=== PATIENT | female | born 1970 | race Caucasian/White ===

== ENCOUNTER → 2023-06-05 17:22 | Outpatient (REF) | payer BC, SELFPAY | LOC: HWWDC 17:22 | PROVIDERS: ATTENDING PHYSICIAN Emergency Medicine | DX: Z12.31 Encounter for screening mammogram for malignant neoplasm of breast (principal) | CPT/HCPCS: 77063; 77067 ==

== ENCOUNTER → 2023-06-27 18:40 | Outpatient (REF) | payer BC, SELFPAY | LOC: MRI 18:40 | PROVIDERS: ATTENDING PHYSICIAN Emergency Medicine | DX: M54.12 Radiculopathy, cervical region (principal); M54.2 Cervicalgia; R20.2 Paresthesia of skin; R51.9 Headache, unspecified | CPT/HCPCS: 70553; 72156; A9575 ==

== ENCOUNTER → 2023-11-06 06:13 | Day surgery (SDC) | payer BC, SELFPAY | LOC: GI 06:13 | PROVIDERS: ATTENDING PHYSICIAN Surgery | DX: Z12.11 Encounter for screening for malignant neoplasm of colon (principal); K56.2 Volvulus; K62.89 Other specified diseases of anus and rectum | CPT/HCPCS: G0121 ==

== ENCOUNTER → 2023-11-29 17:24 | Outpatient (REF) | payer BC, SELFPAY | LOC: MRI 3T 17:24 | PROVIDERS: ATTENDING PHYSICIAN Psychiatry & Neurology Neurology; FAMILY PHYSICIAN Emergency Medicine | DX: G37.9 Demyelinating disease of central nervous system, unspecified (principal) | CPT/HCPCS: 72157; A9575 ==

== ENCOUNTER 2024-03-04 20:39 | Inpatient (IN) | payer BC, SELFPAY ==
[2024-03-04 14:20] VITALS: BP 134/90
[2024-03-04 14:50] LABS: Hematocrit 52.2 % (37.0-47.0); Hemoglobin 17.4 g/dL (12.0-16.0); Mean Corp Hgb Conc. 33.3 g/dL (33.0-37.0); Mean Corpuscular Hgb 31.2 pg (27.0-31.0); Mean Corpuscular Volume 93.7 fL (81.0-99.0); Mean Platelet Volume 8.9 fL (7.4-10.4); Platelet Count 330 10^3/uL (130-400); Red Blood Cell Count 5.57 10^6/uL (4.20-5.40); Red Cell Dist. Width 13.1 % (11.5-14.5); White Blood Cell Count 3.5 10^3/uL (4.8-10.8)
[2024-03-04 15:00] LABS: Absolute Neutrophils -Man Diff 2.5 10^3/uL (1.4-6.5); Band Neutrophils 23 % (0-3); Lymphocytes 6 % (20-51); Monocytes 18 % (2-9); Segmented Neutrophils 50 % (42-75)
[2024-03-04 15:01] LABS: Atypical Lymphocytes 2 %; Eosinophils 1 % (0-6); Normal RBC Morphology Yes; Platelets Checked Yes; Total Cells Counted 100
[2024-03-04 15:07] LABS: ALT (SGPT) 22 U/L (0-35); AST (SGOT) 19 U/L (14-36); Albumin 4.3 g/dl (3.5-5.0); Alkaline Phosphatase 98 U/L (38-126); Blood Urea Nitrogen 17 mg/dl (7-17); Calcium 9.6 mg/dl (8.4-10.2); Carbon Dioxide 15 mmol/L (22-30); Chloride 107 mmol/L (98-107); Glucose 121 mg/dl (70-99); Lipase 54 U/L (23-300); Potassium 4.2 mmol/L (3.5-5.1); Sodium 140 mmol/L (135-145); Total Bilirubin 0.6 mg/dl (0.2-1.3); Total Protein 7.4 g/dl (6.3-8.2); eGFR 38.33
[2024-03-04 16:48] VITALS: BP 145/82
[2024-03-04 17:00] VITALS: BP 139/90
[2024-03-04 17:01] VITALS: BP 139/90
[2024-03-04 17:02] VITALS: BMI 43.1
[2024-03-04] MEDS: NSS 1000 IV ×2 (17:05→19:11)
[2024-03-04 17:32] LABS: Lactic Acid 1.3 mmol/L (0.7-2.0)
--- NOTE | 2024-03-04 18:10 | ED.GENMED ---
History of Present Illness
General
Chief Complaint: Abdominal Symptoms
Source: patient and spouse
Exam Limitations: none
Time Seen by Provider: 03/04/24 16:31
History of Present Illness
History of Present Illness:
This a 53-year-old female presents with persistent nausea, vomiting and diarrhea since Saturday. The patient states she is on Zepbound but has been on the same dose now for 2 doses and did not have any recent increase. The patient states that the
symptoms are persistent since Saturday. She states she just feels really dehydrated. And that she has been unable to eat or drink anything. Even ice chips make her want to vomit. No blood in the vomit. No blood in the stool. No abdominal pain.
No back pain. No chest pain. No fevers. No sick contacts. Denies any urinary symptoms
Past History
Past History
ED Past Medical History: Hypercholesterolemia and Other (Migraines, obesity, gastric bypass)
ED Past Surgical History: and Other (Gastric bypass)
Phy Exam
Physical Exam
Physical Exam:
CONSTITUTIONAL Patient alert and oriented to person, place and time. Well-appearing. Vital signs reviewed.
HEAD atraumatic, normocephalic.
EYES eyelids normal to inspection, Extraocular muscles intact, Conjunctiva normal, Sclera normal.
NECK normal range of motion, Trachea midline, no jugular venous distention.
RESPIRATORY CHEST No respiratory distress noted, Chest expansion equal, Bilateral breath sounds clear.
CARDIOVASCULAR regular and tachycardic
ABDOMEN abdomen nontender, Bowel sounds normal. No distention.
BACK normal inspection, no obvious deformities
UPPER EXTREMITY range of motion normal, Motor strength normal, no cyanosis, no edema.
LOWER EXTREMITY range of motion normal, Motor strength normal, no cyanosis, no edema.
NEURO Speech normal, No focal motor deficits, Jacqueline coma scale 15, Memory normal, Cranial Nerves intact to screening exam.
SKIN skin warm, dry, and normal in color.
Course
Orders/Labs/Results
Orders:
Orders
03/04/24 14:27
Electrocardiogram (*1) Urgent
Reason for Study: Tachycardia
EKG- Treatment ONCE
03/04/24 14:42
Complete Blood Count/With Diff Urgent
Comprehensive Metabolic Panel Urgent
Lipase Urgent
Manual Differential Urgent
03/04/24 16:31
Urinalysis Reflex To Culture Urgent
03/04/24 16:32
0.9% Sodium Chloride 1000 ml [Nss] 1,000 ml IV BOLUS
03/04/24 16:39
Norovirus by PCR Urgent
ESTRADA Source: Feces/Stool
Specimen Description:
Stool Culture Urgent
[facility]ADA Source: Feces/Stool
Specimen Description:
0.9% Sodium Chloride 1000 ml [Nss] 1,000 ml IV BOLUS
03/04/24 16:59
Lactic Acid Q4H
Comment: CANCEL 2nd LACTIC ACID IF 1st LACTIC ACID IS LESS THAN 2
Blood Culture Q30M
ESTRADA Source: Blood/Venous
Specimen Description:
Blood Culture Q30M
ESTRADA Source: Blood/Venous
Specimen Description:
03/04/24 17:12
Add On- LAB Urgent
Tests Added?: lipase
03/04/24 18:00
Procalcitonin Urgent
03/04/24 20:45
Lactic Acid Q4H
Comment: CANCEL 2nd LACTIC ACID IF 1st LACTIC ACID IS LESS THAN 2
Abnormal Lab Results
03/04/24
14:42
WBC 3.5 L 10^3/uL
(4.8-10.8)
RBC 5.57 H 10^6/uL
(4.20-5.40)
Hgb 17.4 H g/dL
(12.0-16.0)
Hct 52.2 H %
(37.0-47.0)
MCH 31.2 H pg
(27.0-31.0)
Band Neutrophils 23 H %
(0-3)
Lymphocytes (Manual) 6 L %
(20-51)
Monocytes (Manual) 18 H %
(2-9)
Carbon Dioxide 15 L mmol/L
(22-30)
Creatinine 1.6 H mg/dL
(0.6-1.0)
Glucose 121 H mg/dl
(70-99)
03/04/24 14:42
03/04/24 14:42
Vital Signs
Initial and Last Documented VS:
Initial Vital Signs
Temp Pulse Resp BP Pulse Ox
96.2 F L 129 18 134/90 98
03/04/24 14:20 03/04/24 14:20 03/04/24 14:20 03/04/24 14:20 03/04/24 14:20
Last Documented Vital Signs
Temp Pulse Resp BP Pulse Ox
98.3 F 119 23 139/90 98
03/04/24 18:02 03/04/24 17:01 03/04/24 17:00 03/04/24 17:01 03/04/24 16:50
MDM/Problems Addressed
Differential Diagnosis Includes:
Electrolyte disturbance, dehydration, gastroenteritis, enteritis, colitis, norovirus
MDM/Problems Addressed:
Acute kidney injury, severe dehydration, bandemia, metabolic acidosis
*Pulse Oximetry
Patient hypoxic: no
*Feather Sawyer Interpretation
Rate: tachycardiac
Interpretation: abnormal
Rhythm: sinus
*Critical Care Note
Total Time (30-74mins, 75-104mins- exclusive of procedures): Not Applicable
Data Reviewed
Source: patient and spouse
Further Testing Considered But Not Given:
Considered CT of the abdomen but abdomen soft no pain
Patient Management
Discussion with other providers: Hospitalist
Escalation/DeEscalation of care consider admission/obs:
Patient remains persistently tachycardic. Given the amount of volume contraction and findings and laboratory studies, admit for continue IV fluids and monitoring. Patient still unable to tolerate anything by mouth. Suspect norovirus
ED Attending Note
-
Portions of this chart may have been created with voice recognition software.� Occasional wrong word or��sound alike� substitutions may have occurred due to the inherent limitations of voice recognition software.
Discharge Plan
Departure
Patient Disposition: Admit
Date of Disposition: 03/04/24
Time of Disposition: :25
Admit to: Med/Surg
Presentation/result/management discussed w/ accepting MD/DO: Hospitalist
Discharge Problem:
Dehydration, severe, Acute kidney injury, suspected norovirus
Referrals:
Alea Reilly MD [Family Provider] -
Interventions
Interventions:
*Risk Screen - Suicide Last Done: 03/04/24 14:20
*General Assessment Last Done: 03/04/24 14:20
*Neglect/Abuse Screening Last Done: 03/04/24 14:20
Discharge Date and Time
Print Language: PASHTO
[2024-03-04 18:47] LABS: Procalcitonin < 0.05 ng/ml (0.0-0.25)
[2024-03-04 19:00] VITALS: BP 124/84
--- NOTE | 2024-03-04 20:11 | HPS.HSE ---
Family Physician
-
Family Physician: Alea Reilly MD
Chief Complaint
-
N/V/D
History of Present Illness
Patient is a 53y F with PMH significant for anxiety, obesity and migraines who presents to ED complaining of N/V/D x 3 days. Patient states that she took her most recent dose of Zepbound on Saturday. She has been on this medication for about 14
weeks. Saturday was her second dose of the higher, 7.5mg dosing. The following day she developed intractable vomiting and diarrhea. Emesis was bilious appearing and stool was loose, liquid and appeared very dark / black. She was unable to tolerate
significant PO intake and has only been able to take in ice chips for the past 3 days. She reports about 10 episodes of diarrhea overnight just last night.
Patient denies any abdominal pain, fevers / chills, urinary complaints, etc. There are no other sick contacts in her home.
Patient states that she has lost about 11 pounds since Saturday due to her GI losses.
Medical History
Past Medical History
Past Medical History: Reports Other
Additional Past Medical History:
Anxiety
Dyslipidemia
Migraine Headaches
Obesity
GERD
Past Surgical History: Reports Other
Additional Past Surgical History:
Gastric Bypass (2003)
Abdominoplasty
Social History
Tobacco: Non-smoker
Alcohol: Occasional (Rarely)
Drug: None
Personal:
Living: With Family
Family History
Family History: Other (Mother: JOLLEY / Cirrhosis, DM)
Allergies / Home Medications
Allergies reflects when Allergies were last updated in [facility].
Home Medications with original date entered in [facility]
Allergy/Medication List:
Allergies
Allergy/AdvReac Type Severity Reaction Status Date / Time
dextromethorphan Allergy Intermediate Unknown Verified 03/04/24 14:18
Home Medications
atorvastatin 10 mg tablet 10 mg PO HS 03/04/24
bupropion HCl 300 mg 24 hr tablet, extended release 300 mg PO HS 03/04/24
calcium 600 mg (as carbonate)-vitamin D3 5 mcg (200 unit) tablet 1 tab PO DAILY 03/04/24
cyanocobalamin (vitamin B-12) 500 mcg tablet 500 mcg PO DAILY 03/04/24
docusate sodium 100 mg capsule (Stool Softener) 100 mg PO HS 03/04/24
ferrous sulfate 134 mg (27 mg iron) tablet 134 mg PO DAILY 03/04/24
magnesium oxide 250 mg PO DAILY 03/04/24
melatonin 10 mg tablet 50 mg PO HS 03/04/24
omeprazole 40 mg capsule,delayed release 40 mg PO HS 03/04/24
potassium 99 mg tablet 99 mg PO DAILY 03/04/24
tirzepatide (weight loss) 7.5 mg/0.5 mL subcutaneous pen injector (Zepbound) 7.5 mg SC BAILEY 03/04/24
topiramate 100 mg tablet 100 mg PO HS 03/04/24
vitamin B complex 1 tab PO DAILY 03/04/24
Review of Systems
-
History Source: Patient
A 12 point ROS was completed and negative except as noted: Yes
Constitutional: Reports Weight Loss and Fatigue; Denies Fever or Chills
Respiratory: Denies Cough or Trouble Breathing
Cardiac: Denies Chest Pain or Palpitations
Abdomen/GI: Reports Nausea, Vomiting, Diarrhea and Black Stools; Denies Abdominal Pain
: Denies Dysuria, Frequency or Flank Pain
Musculoskeletal: Denies Joint Pain or Edema
Neurological: Denies Dizzy or Headache
Psych: Denies Depression or Anxiety
Physical Exam
Vital Signs
Vital Signs
Temp Pulse Resp BP Pulse Ox
98.3 F 119 23 139/90 98
03/04/24 18:02 03/04/24 17:01 03/04/24 17:00 03/04/24 17:01 03/04/24 16:50
Physical Exam
General: Other (53y F in no acite distress.)
HEENT: Moist mucous membranes and PERRLA
Respiratory: Clear; No Wheezes, Rales or Rhonchi
Cardiac: S1/S2 and Regular Rhythm; No Murmur
GI: Soft, Non Tender, Non Distended and Normal Bowel Sounds
Musculoskeletal: No Clubbing, No Cyanosis and No Edema
Neuro: AO x 3
Laboratory Results
-
03/04/24 14:42
03/04/24 14:42
Laboratory Results
Lactic Acid Cancelled 03/04/24 20:45
Total Bilirubin 0.6 mg/dl (0.2-1.3) 03/04/24 14:42
AST 19 U/L (14-36) 03/04/24 14:42
ALT 22 U/L (0-35) 03/04/24 14:42
Alkaline Phosphatase 98 U/L (38-126) 03/04/24 14:42
Lipase 54 U/L (23-300) 03/04/24 14:42
Impression/Plan
-
A/P: Patient si a 53y F with PMH significant for anxiety, migraines and obesity who presents to ED complaininig of N/v/D x 3 days.
N/V/D
Suspected AYE
Anion Gap Metabolic Acidosis
- Admit for further evaluation and treatment.
- GI symptoms likely secondary to tirzepatide - though infectious etiology / Norovirus is a possibility.
- Hold further tirzepatide.
- Follow-up stool studies.
- SCr = 1.6 without prior for comparison - but suspect prerenal AYE due to volume losses.
- IVFs support, antiemetics, supportive care.
- Follow for clinical improvement.
- Low fat diet as tolerated.
- Hold PO magnesium and PPI for now given diarrhea.
- Follow labs / lytes for improvement.
Dyslipidemia
- Stable. Continue statin.
Anxiety / Insomnia
- Stable. Continue Wellbutrin.
- Continue melatonin, but at 10mg dosing - 50mg is excessive.
Migraine Headaches
- Stable. Continue topiramate.
Obesity due to excess calories
- Affects all aspects of care.
- Encourage healthy diet and increased exercise with goal of weight loss.
- If no infectious etiology for current symptoms is discovered, would avoid tirzepatide and similar medications.
DVT Prophylaxis: SCDs
Code Status: Full
[2024-03-05 00:12] LABS: Urine Albumin Trace (Neg - Trace); Urine Bilirubin 2+ (Negative); Urine Character Clear (Clear); Urine Glucose Negative (Negative); Urine Ketone 3+ (Negative); Urine Leukocyte Negative (Negative); Urine Nitrite Negative (Negative); Urine Occult Blood Negative (Negative); Urine Urobilinogen Negative (Neg - 1+)
[2024-03-05 00:13] LABS: Urine Color Amber
[2024-03-05] MEDS: LIPITOR 10 MG PO ×2 (01:17→21:03)
[2024-03-05] MEDS: WELLBUTRIN XL (24 hour extended release) 300 MG PO ×2 (01:18→21:03)
[2024-03-05] MEDS: MELATONIN 10 MG PO ×2 (01:18→21:03)
[2024-03-05] MEDS: TOPAMAX 100 MG PO ×2 (01:18→21:03)
[2024-03-05] MEDS: IMODIUM 2 MG PO ×2 (02:17→10:33)
[2024-03-05] MEDS: LR 1000 IV ×4 (02:17→23:18)
[2024-03-05 02:30] VITALS: BP 134/73
[2024-03-05 05:38] VITALS: BP 128/55
[2024-03-05 05:51] LABS: Hematocrit 42.1 % (37.0-47.0); Mean Corp Hgb Conc. 33.3 g/dL (33.0-37.0); Mean Corpuscular Hgb 31.7 pg (27.0-31.0); Mean Corpuscular Volume 95.2 fL (81.0-99.0); Mean Platelet Volume 9.2 fL (7.4-10.4); Platelet Count 265 10^3/uL (130-400); Red Blood Cell Count 4.42 10^6/uL (4.20-5.40); Red Cell Dist. Width 13.4 % (11.5-14.5); White Blood Cell Count 4.3 10^3/uL (4.8-10.8)
[2024-03-05 06:18] LABS: ALT (SGPT) 15 U/L (0-35); AST (SGOT) 16 U/L (14-36); Albumin 2.9 g/dl (3.5-5.0); Alkaline Phosphatase 69 U/L (38-126); Blood Urea Nitrogen 15 mg/dl (7-17); Calcium 8.3 mg/dl (8.4-10.2); Carbon Dioxide 16 mmol/L (22-30); Chloride 110 mmol/L (98-107); Estimated Creatinine Clearance 69 ml/min; Glucose 86 mg/dl (70-99); Magnesium 1.5 mg/dl (1.6-2.3); Phosphorus 3.6 mg/dl (2.5-4.5); Potassium 3.2 mmol/L (3.5-5.1); Sodium 138 mmol/L (135-145); Total Bilirubin 0.4 mg/dl (0.2-1.3); Total Protein 5.5 g/dl (6.3-8.2); eGFR 54.13
[2024-03-05 06:47] LABS: TSH Reflex To Free T4 1.02 uIU/ml (0.47-4.68)
[2024-03-05 08:33] VITALS: BP 115/70
--- NOTE | 2024-03-05 09:51 | W.PN.HOSP.TC ---
Today's Communication/Plan
-
Symptomatically improved with resolved nausea and emesis.
Remains with diarrhea.
Continue IV hydration.
Replete electrolytes.
Follow-up BMP
Assessment / Plan
Assessment / Plan
A/P: Patient si a 53y F with PMH significant for anxiety, migraines and obesity who presents to ED complaininig of N/v/D x 3 days.
N/V/D
AYE
Anion Gap Metabolic Acidosis
- GI symptoms likely secondary to tirzepatide -less likely due to infection. Norovirus negative. Stool cultures pending.
- Hold further tirzepatide.
- Follow-up stool studies.
- SCr = 1.6 without prior for comparison - but suspect prerenal AYE due to volume losses.
- IVFs support, antiemetics, supportive care.
- Follow for clinical improvement.
- Low fat diet as tolerated.
- Hold PO magnesium and PPI for now given diarrhea.
- Follow labs / lytes for improvement.
Dyslipidemia
- Stable. Continue statin.
Anxiety / Insomnia
- Stable. Continue Wellbutrin.
- Continue melatonin, but at 10mg dosing - 50mg is excessive.
Migraine Headaches
- Stable. Continue topiramate.
Obesity due to excess calories
- Affects all aspects of care.
- Encourage healthy diet and increased exercise with goal of weight loss.
- If no infectious etiology for current symptoms is discovered, would avoid tirzepatide and similar medications.
DVT Prophylaxis: SCDs
Code Status: Full
Anticipated Discharge: 24 - 48 hours
Subjective/Interval History
-
Date of Service: March 05, 2024
Objective Data
-
Labs:
Laboratory Results
03/05/24
05:20
WBC 4.3 L
Hgb 14.0
Hct 42.1
Plt Count 265
Sodium 138
Potassium 3.2 L
Chloride 110 H
Carbon Dioxide 16 L
BUN 15
Creatinine 1.2 H
Glucose 86
Calcium 8.3 L
Total Bilirubin 0.4
AST 16
ALT 15
Alkaline Phosphatase 69
Vital Signs:
Vital Signs
Temp Pulse Resp BP Pulse Ox
98.2 F 105 20 115/70 99
03/05/24 08:33 03/05/24 08:33 03/05/24 08:33 03/05/24 08:33 03/05/24 08:33
Physical Exam
-
General: Well Developed and No Apparent Distress
HEENT: Normocephalic, Atraumatic and Moist Mucous Membranes
Respiratory: Clear to Auscultation
Cardiac: Regular Rhythm and S1/S2; Negative Murmur, Rub or Gallop
GI: Soft, Nontender, Nondistended and Normal Bowel Sounds; Negative Organomegaly
Rectal: Deferred by Provider
Musculoskeletal: No Clubbing, No Cyanosis and No Edema
Skin: Negative Rash
Neuro: Nonfocal/Grossly Intact
[2024-03-05] MEDS: KCL 40 MEQ PO (10:33)
[2024-03-05 13:35] VITALS: BMI 43.1
[2024-03-05 16:27] VITALS: BP 112/64; BMI 44.0
[2024-03-05 23:00] VITALS: BP 109/67; BP 110/58; BP 115/66; PULSE 105; PULSE 108; PULSE 116
[2024-03-06] MEDS: LR 1000 IV (05:56)
[2024-03-06 08:33] LABS: Hematocrit 38.4 % (37.0-47.0); Hemoglobin 13.2 g/dL (12.0-16.0); Mean Corp Hgb Conc. 34.4 g/dL (33.0-37.0); Mean Corpuscular Volume 93.2 fL (81.0-99.0); Mean Platelet Volume 9.1 fL (7.4-10.4); Platelet Count 217 10^3/uL (130-400); Red Blood Cell Count 4.12 10^6/uL (4.20-5.40); Red Cell Dist. Width 13.5 % (11.5-14.5); White Blood Cell Count 5.2 10^3/uL (4.8-10.8)
--- NOTE | 2024-03-06 08:33 | PN.CDI ---
CDI
- -
CDI:
Physician Documentation Request
Admit Date: 03/04/24 20:39
Dear Doctor Ingris,
Patient admitted for nausea, vomiting, and diarrhea.
03/05 Potassium level 3.2
03/05 Potassium chloride 40 meq PO administered
Based on the above, could you clarify in the progress notes, the appropriate diagnosis, if significant, that supports the above abnormalities and additional evaluation, monitoring and/or treatment rendered:
Hypokalemia
Abnormal lab value insignificant
Other
Use of terms such as suspected, likely, concern for, or probable (associated with a specific diagnosis that is being evaluated, monitored, or treated as if it exists) are acceptable and can be coded in the inpatient setting, when documented at the
time of discharge.
Thank you,
Mae Rich RN, BSN
CDI Specialist
Available via [employer] text
Please use your independent medical judgment in providing your response.
[2024-03-06 08:37] LABS: Blood Urea Nitrogen 11 mg/dl (7-17); Calcium 8.6 mg/dl (8.4-10.2); Carbon Dioxide 20 mmol/L (22-30); Chloride 105 mmol/L (98-107); Estimated Creatinine Clearance 84 ml/min; Glucose 85 mg/dl (70-99); Potassium 3.4 mmol/L (3.5-5.1); Sodium 135 mmol/L (135-145); eGFR > 60.00
[2024-03-06 08:41] VITALS: BP 128/59
[2024-03-06 09:20] LABS: Absolute Neutrophils -Man Diff 3.1 10^3/uL (1.4-6.5); Atypical Lymphocytes 2 %; Band Neutrophils 10 % (0-3); Eosinophils 2 % (0-6); Lymphocytes 20 % (20-51); Monocytes 16 % (2-9); Segmented Neutrophils 50 % (42-75)
[2024-03-06 09:21] LABS: Normal RBC Morphology Yes; Platelets Checked Yes; Total Cells Counted 100
--- NOTE | 2024-03-06 10:49 | W.DS.TRANS ---
DC Summary - [facility]
-
Discharge Instructions:
Discharge Diagnosis/Procedures Acute enteritis with dehydration and AYE
Diet Regular
Instructions:
Stand-Alone Forms:
Changes to Home Medications: No
Discharge Medications:
DC Medications w/original date entered in [facility]
atorvastatin 10 mg tablet 10 mg PO HS 03/04/24
bupropion HCl 300 mg 24 hr tablet, extended release 300 mg PO HS 03/04/24
calcium 600 mg (as carbonate)-vitamin D3 5 mcg (200 unit) tablet 1 tab PO DAILY 03/04/24
cyanocobalamin (vitamin B-12) 500 mcg tablet 500 mcg PO DAILY 03/04/24
docusate sodium 100 mg capsule (Stool Softener) 100 mg PO HS 03/04/24
ferrous sulfate 134 mg (27 mg iron) tablet 134 mg PO DAILY 03/04/24
magnesium oxide 250 mg PO DAILY 03/04/24
melatonin 10 mg tablet 50 mg PO HS 03/04/24
omeprazole 40 mg capsule,delayed release 40 mg PO HS 03/04/24
potassium 99 mg tablet 99 mg PO DAILY 03/04/24
tirzepatide (weight loss) 7.5 mg/0.5 mL subcutaneous pen injector (Zepbound) 7.5 mg SC BAILEY 03/04/24
topiramate 100 mg tablet 100 mg PO HS 03/04/24
vitamin B complex 1 tab PO DAILY 03/04/24
Home Medication Changes
Pending Results: No
[2024-03-06] MEDS: KCL 40 MEQ PO (11:13)
[2024-03-06 11:53] VITALS: BP 141/91
== END 2024-03-06 12:00 | disposition home or self-care (01) | DRG 394 ==
LOC: 4 EAST ACU 20:39
PROVIDERS: ADMITTING PHYSICIAN Hospitalist; ATTENDING PHYSICIAN Internal Medicine; EMERGENCY PHYSICIAN Emergency Medicine; FAMILY PHYSICIAN Emergency Medicine
DX: K52.1 Toxic gastroenteritis and colitis (principal); E87.20 Acidosis, unspecified; Z68.41 Body mass index [BMI] 40.0-44.9, adult; N17.9 Acute kidney failure, unspecified; T38.3X5A Adverse effect of insulin and oral hypoglycemic [antidiabetic] drugs, initial encounter; E86.0 Dehydration; E87.6 Hypokalemia; F41.9 Anxiety disorder, unspecified; E66.09 Other obesity due to excess calories; E78.00 Pure hypercholesterolemia, unspecified; G47.00 Insomnia, unspecified; G43.909 Migraine, unspecified, not intractable, without status migrainosus; K21.9 Gastro-esophageal reflux disease without esophagitis; Z98.84 Bariatric surgery status; Z79.899 Other long term (current) drug therapy; Z88.8 Allergy status to other drugs, medicaments and biological substances
CPT/HCPCS: 80048; 80053; 81003; 82248; 83605; 83690; 83735; 84100; 84145; 84443; 85025; 85027; 87040; 87045; 87046; 87077; 87186; 87427; 87798; 93005; 96360; 96361; 99284

== ENCOUNTER → 2024-03-23 16:02 | Outpatient (REF) | payer BC, SELFPAY | LOC: HWRAD 16:02 | PROVIDERS: ATTENDING PHYSICIAN Emergency Medicine | DX: R05.1 Acute cough (principal) | CPT/HCPCS: 71046 ==

== ENCOUNTER → 2024-03-30 07:34 | Outpatient (REF) | payer BC, SELFPAY | LOC: RAD 07:34 | PROVIDERS: ATTENDING PHYSICIAN Emergency Medicine | DX: E86.0 Dehydration (principal); K52.9 Noninfective gastroenteritis and colitis, unspecified; R19.7 Diarrhea, unspecified | CPT/HCPCS: 74177; Q9967 ==